=== PATIENT | female | born 1995 | race African-American/Black ===

== ENCOUNTER 2023-07-29 10:44 | Day surgery (SDC) | payer OTHER ==
[2023-07-28 15:55] VITALS: BMI 31.5
[2023-07-29 11:26] VITALS: RESP 18
[2023-07-29] MEDS ORDERED: PROPOFOL 120 ML ONE (11:45)
[2023-07-29 12:17] VITALS: TEMP 97.2
[2023-07-29 13:07] VITALS: BP 90/50; PULSE 80
== END 2023-07-29 13:07 | disposition home or self-care (01) ==
LOC: FASU-ENDO 10:44
PROVIDERS: ATTEND Internal Medicine Gastroenterology
PROC: 0DBL8ZX Excision of Transverse Colon, Via Natural or Artificial Opening Endoscopic, Diagnostic (ICD-10-PCS; 2023-07-29)
PROC: 0DBP8ZX Excision of Rectum, Via Natural or Artificial Opening Endoscopic, Diagnostic (ICD-10-PCS; 2023-07-29)
PROC: 0DBM8ZX Excision of Descending Colon, Via Natural or Artificial Opening Endoscopic, Diagnostic (ICD-10-PCS; principal; 2023-07-29 11:52)
DX: K62.1 Rectal polyp (principal); K63.89 Other specified diseases of intestine; K64.1 Second degree hemorrhoids; R19.7 Diarrhea, unspecified
CPT/HCPCS: 81025; 88305-TC